=== PATIENT | male | born 1960 | race African-American/Black ===

== ENCOUNTER 2024-03-23 16:33 | Emergency (ER) | payer MEDICARE, OTHER ==
[~2024-03-23] VITALS: Ht 182.9 cm; Wt 117.9 kg
[~2024-03-23 16:33] MED LIST: BACITRACIN15 GM TOP; NYSTATIN-TRIAMC15 GM TOP
[2024-03-23 16:44] VITALS: PULSE 80; RESP 20; TEMP 98.1; O2SAT 99
[2024-03-23] MEDS ORDERED: DOXYCYCLINE HY100 MG PO (16:48)
[2024-03-23] MEDS ORDERED: ELIMITE60 GM TOP (16:52)
[2024-03-23] MEDS ORDERED: BACITRACIN ZINC 0.9GM TP ONE (16:54)
[2024-03-23] MEDS: BACITRACIN ZINC 15 GM OINT TOP SCH (16:59)
== END 2024-03-23 17:25 | disposition home or self-care (01) ==
LOC: ER 16:44
DX: I83.218 Varicose veins of right lower extremity with both ulcer of other part of lower extremity and inflammation (principal); I83.228 Varicose veins of left lower extremity with both ulcer of other part of lower extremity and inflammation; F52.8 Other sexual dysfunction not due to a substance or known physiological condition; F32.A Depression, unspecified
CPT/HCPCS: 99283